=== PATIENT | female | born 1950 | race Caucasian/White ===

== ENCOUNTER 2017-01-14 14:29 | Outpatient (CLI) | payer BC ==
[2015-04-24 06:16] VITALS: O2SAT 96
== END 2017-01-14 14:30 | disposition home or self-care (01) ==
LOC: CONVCARE 14:29
PROVIDERS: ATTEND Orthopaedic Surgery
DX: Z47.1 Aftercare following joint replacement surgery (principal); Z96.652 Presence of left artificial knee joint; M25.562 Pain in left knee; M23.52 Chronic instability of knee, left knee
CPT/HCPCS: 73562

== ENCOUNTER 2017-01-21 05:35 | Inpatient (IN) | payer BC ==
[2017-01-21] MEDS: SODIUM CHLORIDE 0.9% FLUSH 10 ML SOL IV PRN (06:09)
[2017-01-21] MEDS: SCOPOLAMINE 1.5MG PATCH TD SCH (06:11)
[2017-01-21] MEDS ORDERED: LACTATED RINGERS 1,000 ML IV ONE (06:30)
[2017-01-21] MEDS ORDERED: ONDANSETRON HCL 4 MG/2 ML SOL ONE (07:06)
[2017-01-21] MEDS ORDERED: MORPHINE SULFATE 0.5 MG/ML SOL ONE (07:06)
[2017-01-21] MEDS ORDERED: DEXAMETHASONE 20 MG/5 ML (4 MG/ML SOL) ONE (07:06)
[2017-01-21] MEDS ORDERED: METOCLOPRAMIDE HYDROCHLORIDE 5 MG/ML SOL ONE (07:06)
[2017-01-21] MEDS ORDERED: PROPOFOL 500 MG/50 ML EMU IV ONE ×2 (07:06→09:04)
[2017-01-21] MEDS ORDERED: KETAMINE HYDROCHLORIDE 50 MG/ML SOL ONE (07:06)
[2017-01-21] MEDS ORDERED: TRANEXAMIC ACID 100 MG/ML SOL ONE (07:06)
[2017-01-21] MEDS ORDERED: LIDOCAINE HCL 1% MPF SOL ONE (07:06)
[2017-01-21] MEDS ORDERED: BUPIVACAINE LIPOSOME 20 ML SUS ONE (07:07)
[2017-01-21] MEDS ORDERED: SODIUM CHLORIDE 20 ML 40 ML ONE (07:07)
[2017-01-21] MEDS ORDERED: MIDAZOLAM 2 MG/2 ML SOL ONE (07:09)
[2017-01-21] MEDS ORDERED: CLINDAMYCIN 150 MG/ML SOL ONE ×2 (07:17→16:26)
[2017-01-21] MEDS ORDERED: LACTATED RINGERS 1,000 ML IV SCH (07:30)
[2017-01-21] MEDS ORDERED: PHENYLEPHRINE HYDROCHLORIDE 10 MG/ML SOL ONE (08:35)
[2017-01-21] MEDS ORDERED: SODIUM CHLORIDE 0.9% 500 ML 500 ML IV PRN (09:35)
[2017-01-21] MEDS ORDERED: ONDANSETRON HCL 4 MG/2 ML SOL IV PRN (09:35)
[2017-01-21] MEDS ORDERED: TEMAZEPAM 15MG 15 MG CAP PO PRN (09:35)
[2017-01-21] MEDS ORDERED: FLEET ENEMA PR PRN (09:35)
[2017-01-21] MEDS ORDERED: DIPHENHYDRAMINE 50 MG/ML SOL IV PRN (09:35)
[2017-01-21] MEDS ORDERED: BISACODYL 10 MG SUP PR PRN (09:35)
[2017-01-21] MEDS ORDERED: HYDROMORPHONE HCL 2 MG/ML SOL IV PRN (09:35)
[2017-01-21] MEDS ORDERED: MAGNESIUM HYDROXIDE 30 ML SUS PO PRN (09:35)
[2017-01-21] MEDS ORDERED: MORPHINE SULFATE 10 MG/ML SOL IM PRN (09:35)
[2017-01-21] MEDS ORDERED: ONDANSETRON 4 MG ODT BU PRN (09:35)
[2017-01-21] MEDS ORDERED: DIAZEPAM 5 MG TAB PO PRN (09:35)
[2017-01-21] MEDS ORDERED: ALUMINUM/MAGNESIUM 30 ML SUS PO PRN (09:35)
[2017-01-21] MEDS: DEXTROSE/SALINE 0.45% 1,000 ML IV SCH ×2 (11:38→22:48)
[2017-01-21] MEDS: SODIUM CHLORIDE 0.9% FLUSH 10 ML SOL IV SCH ×2 (11:39→19:33)
[2017-01-21] MEDS ORDERED: SODIUM CHLORIDE 0.9% 100 ML 100 ML IV ONE (16:27)
[2017-01-21] MEDS: CLINDAMYCIN 150 MG/ML 900 MG in SODIUM CHLORIDE 0.9% 100 ML 100 ML IV SCH (16:31)
[2017-01-21] MEDS: APAP/HYDROCODONE 325/5 TAB PO PRN ×2 (16:32→20:31)
[2017-01-21] MEDS: DULOXETINE HCL 30 MG CAPSULE.DR PO SCH (20:16)
[2017-01-21] MEDS: GABAPENTIN 300 MG CAP PO SCH (20:16)
[2017-01-21] MEDS: SENNOSIDES A AND B 8.6 MG TAB PO SCH (20:16)
[2017-01-21] MEDS: CHOLECALCIFEROL 1,000 IU TAB PO SCH (20:17)
[2017-01-21] MEDS: ALPRAZOLAM 0.25 MG TAB PO SCH (20:32)
[2017-01-22] MEDS ORDERED: CLINDAMYCIN 150 MG/ML SOL ONE (00:34)
[2017-01-22] MEDS ORDERED: SODIUM CHLORIDE 0.9% 100 ML 100 ML IV ONE (00:36)
[2017-01-22] MEDS: CLINDAMYCIN 150 MG/ML 900 MG in SODIUM CHLORIDE 0.9% 100 ML 100 ML IV SCH (00:41)
[2017-01-22] MEDS: APAP/HYDROCODONE 325/5 TAB PO PRN ×7 (01:57→23:56)
[2017-01-22] MEDS: SODIUM CHLORIDE 0.9% FLUSH 10 ML SOL IV SCH ×3 (06:26→19:49)
[2017-01-22] MEDS: LEVOTHYROXINE SODIUM 137 MCG TAB PO SCH (06:59)
[2017-01-22 07:32] LABS: MEAN CORPUSCULAR HGB CONC 33.9 gm/dl (32.0-36.0)
[2017-01-22] MEDS ORDERED: ERYTHROMYCIN OPTHAL 1 GM TUBE RIGHTEYE PRN (09:15)
[2017-01-22] MEDS ORDERED: PEG-400/PROPYLENE GLYCOL 1 DROP SOL RIGHTEYE PRN (09:15)
[2017-01-22] MEDS: DULOXETINE HCL 30 MG CAPSULE.DR PO SCH ×2 (09:48→20:42)
[2017-01-22] MEDS: VALSARTAN 80 MG TAB PO SCH (09:49)
[2017-01-22] MEDS: FERROUS SULFATE 325 MG TAB PO SCH (09:50)
[2017-01-22] MEDS: METOPROLOL TARTRATE 25 MG TAB PO SCH (09:51)
[2017-01-22] MEDS: CHOLECALCIFEROL 1,000 IU TAB PO SCH ×2 (09:51→20:42)
[2017-01-22] MEDS: RIVAROXABAN 10 MG TAB PO SCH (09:51)
[2017-01-22] MEDS: MULTIVITAMIN2 1 EA TAB PO SCH (09:51)
[2017-01-22] MEDS: ALPRAZOLAM 0.25 MG TAB PO SCH ×2 (09:56→20:41)
[2017-01-22] MEDS: DEXTROSE/SALINE 0.45% 1,000 ML IV SCH ×2 (10:08→19:40)
[2017-01-22] MEDS: GABAPENTIN 300 MG CAP PO SCH (20:41)
[2017-01-22] MEDS: SENNOSIDES A AND B 8.6 MG TAB PO SCH (20:42)
[2017-01-23] MEDS: APAP/HYDROCODONE 325/5 TAB PO PRN ×4 (03:17→13:18)
[2017-01-23] MEDS: SODIUM CHLORIDE 0.9% FLUSH 10 ML SOL IV SCH ×4 (03:17→19:16)
[2017-01-23] MEDS: LEVOTHYROXINE SODIUM 137 MCG TAB PO SCH (06:26)
[2017-01-23 07:14] LABS: MEAN CORPUSCULAR HGB CONC 33.9 gm/dl (32.0-36.0)
[2017-01-23] MEDS: RIVAROXABAN 10 MG TAB PO SCH (08:27)
[2017-01-23] MEDS: METOPROLOL TARTRATE 25 MG TAB PO SCH (08:27)
[2017-01-23] MEDS: CHOLECALCIFEROL 1,000 IU TAB PO SCH ×2 (08:27→20:44)
[2017-01-23] MEDS: FERROUS SULFATE 325 MG TAB PO SCH (08:27)
[2017-01-23] MEDS: MULTIVITAMIN2 1 EA TAB PO SCH (08:27)
[2017-01-23] MEDS: VALSARTAN 80 MG TAB PO SCH (08:28)
[2017-01-23] MEDS: DULOXETINE HCL 30 MG CAPSULE.DR PO SCH ×2 (08:28→20:44)
[2017-01-23] MEDS: ALPRAZOLAM 0.25 MG TAB PO SCH ×2 (08:30→20:47)
[2017-01-23] MEDS ORDERED: NAPROXEN 500 MG TAB ONE (20:35)
[2017-01-23] MEDS: NAPROXEN 500 MG TAB PO SCH (20:43)
[2017-01-23] MEDS: SENNOSIDES A AND B 8.6 MG TAB PO SCH (20:44)
[2017-01-23] MEDS: GABAPENTIN 300 MG CAP PO SCH (20:44)
[2017-01-23] MEDS: SODIUM CHLORIDE 0.9% FLUSH 10 ML SOL IV PRN (20:47)
[2017-01-23] MEDS ORDERED: ACETAMINOPHEN 500 MG 500 MG TAB PO SCH (21:19)
[2017-01-23] MEDS ORDERED: ACETAMINOPHEN 500 MG 500 MG TAB PO PRN (22:02)
[2017-01-23 22:11] LABS: APPEARANCE,URINE Cloudy; BILIRUBIN,URINE NEGATIVE (NEGATIVE); COLOR,URINE Yellow; GLUCOSE, URINE (UA) NEGATIVE (NEGATIVE); KETONES,URINE NEGATIVE (NEGATIVE); LEUKOCYTE ESTERASE ,URINE 2+ (NEGATIVE); NITRATE,URINE POSITIVE (NEGATIVE); OCCULT BLOOD,URINE 1+ (NEG-TRACE); UROBILINOGEN,URINE 0.2 (0.2-1.0 EU)
[2017-01-23 22:27] LABS: WBC,URINE 200-250 (0-5AV/HPF)
[2017-01-23] MEDS ORDERED: LEVOFLOXACIN 500 MG TAB PO SCH (22:30)
[2017-01-24] MEDS: SODIUM CHLORIDE 0.9% FLUSH 10 ML SOL IV SCH (01:15)
[2017-01-24] MEDS: SCOPOLAMINE 1.5MG PATCH TD SCH (06:06)
[2017-01-24] MEDS: LEVOTHYROXINE SODIUM 137 MCG TAB PO SCH (06:42)
[2017-01-24] MEDS: SODIUM CHLORIDE 0.9% FLUSH 10 ML SOL IV PRN (06:42)
[2017-01-24 07:14] LABS: MEAN CORPUSCULAR HGB CONC 33.2 gm/dl (32.0-36.0)
[2017-01-24] MEDS: CHOLECALCIFEROL 1,000 IU TAB PO SCH (09:38)
[2017-01-24] MEDS: ALPRAZOLAM 0.25 MG TAB PO SCH (09:38)
[2017-01-24] MEDS: RIVAROXABAN 10 MG TAB PO SCH (09:38)
[2017-01-24] MEDS: FERROUS SULFATE 325 MG TAB PO SCH (09:38)
[2017-01-24] MEDS: MULTIVITAMIN2 1 EA TAB PO SCH (09:38)
[2017-01-24] MEDS: DULOXETINE HCL 30 MG CAPSULE.DR PO SCH (09:38)
[2017-01-24] MEDS: VALSARTAN 80 MG TAB PO SCH (09:38)
[2017-01-24] MEDS: METOPROLOL TARTRATE 25 MG TAB PO SCH (09:39)
[2017-01-24] MEDS: NAPROXEN 500 MG TAB PO SCH (09:40)
[2017-01-24] MEDS ORDERED: NAPROXEN 500 MG TAB ONE (09:40)
[2017-01-24 09:50] VITALS: BP 103/58; PULSE 85; RESP 24; TEMP 97.9; O2SAT 100
== END 2017-01-24 14:25 | disposition home or self-care (01) | DRG 302 ==
LOC: ACUTE CARE 05:35
PROVIDERS: ADMIT Orthopaedic Surgery; ATTEND Orthopaedic Surgery
PROC: 0SUW09Z Supplement Left Knee Joint, Tibial Surface with Liner, Open Approach (ICD-10-PCS; 2017-01-21)
PROC: 0KNR0ZZ Release Left Upper Leg Muscle, Open Approach (ICD-10-PCS; 2017-01-21)
PROC: F01ZDFZ Gait and/or Balance Assessment using Assistive, Adaptive, Supportive or Protective Equipment (ICD-10-PCS; 2017-01-21)
PROC: F01ZBZZ Bed Mobility Assessment (ICD-10-PCS; 2017-01-21)
PROC: F01ZCZZ Transfer Assessment (ICD-10-PCS; 2017-01-21)
PROC: 0SPD09Z Removal of Liner from Left Knee Joint, Open Approach (ICD-10-PCS; principal; 2017-01-21 08:00)
DX: M23.8X2 Other internal derangements of left knee (principal); N39.0 Urinary tract infection, site not specified; M62.89 Other specified disorders of muscle; Z96.652 Presence of left artificial knee joint; I10 Essential (primary) hypertension
CPT/HCPCS: 36415; 71020; 73560; 81001; 85027; 87077; 87088; 87186; 94150; 99070; J1100; J2250; J2274; J2405; J2765; J3490; A4450; A6232; A6402; J2001; J2704

== ENCOUNTER 2017-03-04 09:59 | Outpatient (CLI) | payer BC ==
[2017-01-22 06:26] VITALS: O2SAT 96
== END 2017-03-04 10:00 | disposition home or self-care (01) ==
LOC: CONVCARE 09:59
PROVIDERS: ATTEND Orthopaedic Surgery
DX: Z47.1 Aftercare following joint replacement surgery (principal); Z96.652 Presence of left artificial knee joint
CPT/HCPCS: 73560